=== PATIENT | female | born 1935 | race Caucasian/White ===

== ENCOUNTER → 2017-09-12 | Outpatient (CLI) | payer MEDICARE ==
[~2017-09-12] MED LIST: ACET-1966 PO; ALEN70TA43 PO; CLIN300C99 PO; METH2.5T43 PO
--- NOTE | 2017-09-12 10:10 | RADIOLOGY IMAGING REPORT ---
FACILITY: [facility] - [place] PATIENT NAME: Pamela Hines : 1935 MR: [id number] V: [id number] EXAM DATE: ORDERING PHYSICIAN: CHARLENE ANDREA TECHNOLOGIST: Location: [facility] - [place] Patient: Pamela Hines : 1935 Visit/Account:[id number] Date of Sevice: 09/12/2017 Cervical spine minimum 4 views: HISTORY: Cervical neck pain, mainly on right side, radiates into head COMPARISON: None. FINDINGS: 8 views were obtained of the cervical spine. A mild to moderate disc space narrowing and osteophyte formation is present at all levels, most signi ficant at C4-5, C5-6 and C6-7. Multilevel facet degenerative changes are present most significant at those same levels. In neutral, there is no listhesis. In flexion and extension, there is no abnorm al motion. Vertebral body height is well maintained. On oblique films, no significant foraminal narrowing is noted on the right. Mild foraminal narrowing present at C4-5 on the left. On odontoid view, odontoid and relationship between C1 and C2 is not well evaluated due to overlap of the patient's teeth. On the submental vertex view, odontoid is grossly unremarkable. IMPRESSION: 1. Mild to moderate multilevel degenerative changes most significant at C4-5, C5-6 and C6-7. 2. Anatomic alignment. There is no abnormal motion. 3. Mild foraminal narrowing at C4-5 on the left. No significant foraminal narrowing seen on the rig ht. Report Dictated By: Ni Birmingham MD at 09/12/2017 10:02 AM Report E-Signed By: Ni Birmingham MD at 09/12/2017 10:06 AM WSN:ALDO
== END ==
LOC: RAD 09:10
PROVIDERS: ATTEND Family Medicine
DX: M50.323 Other cervical disc degeneration at C6-C7 level (principal)
CPT/HCPCS: 72050

== ENCOUNTER 2017-12-10 09:45 | Outpatient (RCR) | payer MEDICARE ==
--- NOTE | 2017-09-13 17:39 | PT INITIAL EVALUATION ---
MEDICAL DIAGNOSIS: Neck pain TREATMENT DIAGNOSIS: Same DATE OF ONSET: 09/13/16 SUBJECTIVE: Pamela Hines presents to physical therapy with complaints of neck pain surrounding her R ear and radiating to her anterior R side of her face and down into her R shoulder (UT region). She reports that the pain started approximately one year ago for no apparent reason. She rates her current neck pain to be 4/5/10. She reports that the neck pain feels better with Tylenol X 2 -3 times per day, with bending her neck back while sitting and driving, and as the day progresses. She reports her neck pain to be worse with bending her neck into flexion, reading, turning, and in the am. She reports that she does not have headaches associated with her neck pain. She reports that she had an xray yesterday. She denies any of the following symptoms: dizziness, tinnitus, nausea, swallowing difficulties. She reports night pain and denies any unexplained weight loss. Furthermore, she denies any recent accidents or surgery. Pain location is Cervical 2-7 radiating to R anterior side of face and to R UT and described as achy, shooting. Pain scale is 4 on a ten point pain scale. REHAB PROBLEM LIST: Increased Pain Decreased ROM Decreased Strength Decreased Endurance Decreased Function Decreased ADL's PREVIOUS MEDICAL HISTORY: See EMR OCCUPATION: Retired OBJECTIVE: Posture: She demonstrated moderate forward head, increased thoracic kyphosis, B rounded shoulders, and decreased lumbar lordosis. ROM: Cervical AROM: protrusion: minimal restriction with pain, flexion: minimal restriction with pain, retraction: moderate restriction with pain, extension : minimal restriction with pain, lateral flexion R: major restriction with pain , lateral flexion L: major restriction with pain, R rotation: moderate restriction with pain, L rotation: major restriction with pain. She reports that L rotation feels the most restricted and painful. Palpation: TTP: spinous process of C2-7 and radiating pain around R ear, R anterior side of face, and R UT. Sensation: Denies any N&T, therefore, it was not tested Special Tests: Repeated retraction: pain felt during the test and better following the test. Repeated retraction with extension: pain felt during the test and better following the test with centralized symptoms with increased L rotation. Mobility: Independent ASSESSMENT: Pamela will benefit from skilled physical therapy to address the listed impairments to improve function and QOL. Based on today's examination, her symptoms are consistent with a provisional classification of posterior derangement that responds well to extension based exercises. Short Term Goals 2 weeks: Pt will demonstrate centralized neck pain to improve function and QOL. 4 weeks: Pt will demonstrate abolished neck pain and demonstrate full cervical AROM with normal end feels to improve function and QOL. Patient's Goals reduce neck pain PLAN: Patient to be seen for Manual Therapy/STM/MET Strengthening/condition Range of Motion Spinal Stabilization Work Hardening/Cond Stretching Neuromuscular Re-ed Closed Chain Program Posture/Body mechanics Home Exercise Program Therapeutic Activities 2x/Week for 4 Weeks If you have any questions, comments, or concerns about this report or plan, please contact me at . Thank you, Cory Guevara, PT, DPT MTDD
--- NOTE | 2017-10-22 13:35 | PT PLAN OF CARE ---
Physician: Senait Valdes DO Patient is being seen: 2x/week Therapist: Cory Guevara, PT, DPT Medical Diagnosis: Neck pain Treatment Diagnosis: Same Date of Onset: 09/13/16 Date of Initial Evaluation: 09/13/17 Date patient was last seen: 10/22/17 Number of treatments: 10 Number of cancellations/No shows: 1 INTERVENTIONS: Manual Therapy/STM/MET Strengthening/condition Range of Motion Spinal Stabilization Work Hardening/Cond Stretching Neuromuscular Re-ed Closed Chain Program Posture/Body mechanics Home Exercise Program Therapeutic Activities GOALS: 2 weeks: Pt will demonstrate centralized neck pain to improve function and QOL. MET 4 weeks: Pt will demonstrate abolished neck pain and demonstrate full cervical AROM with normal end feels to improve function and QOL. Progressing well PATIENT'S GOAL: reduce neck pain Status of Patient's Goals: Progressing well Patient Compliance: Good Prognosis: Excellent Reasons for continuing therapy: This is a progress note for Pamela Hines. She reports that she continues to have neck pain especially in the evenings. She does report that the pain has moved from her ear to more in the center of her neck. She denies any headaches. She reports that she feels like her motion especially with driving has significantly improved. She denies any pain right now. She demonstrated improved cervical AROM in all directions with more normalized end feels, centralized neck pain as it no longer radiates to her R ear, and significant improvement in balance strategies especially when the vestibular system is isolated. She continues to be independent on her specific exercise and home exercise program. We will continue to abolish cervical pain, increase cervical AROM, and improve balance strategies to return to prior level of function. Posture: She demonstrated moderate forward head, increased thoracic kyphosis, B rounded shoulders, and decreased lumbar lordosis. ROM: Cervical AROM: protrusion: NIL with no pain, flexion: NIL with no pain, retraction: NIL with no pain, extension: NIL with no pain, lateral flexion R: moderate restriction with stretch, lateral flexion L: moderate restriction with stretch, R rotation: NIL with no pain, L rotation: minimal restriction with stiffness. She reports that L rotation feels the most restricted and painful. Palpation: TTP: spinous process of CC2-3 Special Tests: Repeated retraction: pain felt during the test and better following the test. Repeated retraction with extension: pain felt during the test and better following the test with centralized symptoms with increased L rotation. Mobility: Independent If you have any questions, please contact me at [phone]. Thank you, Cory Guevara, PT, DPT MAHAD
--- NOTE | 2017-11-27 13:54 | PT PLAN OF CARE ---
Physician: Senait Valdes DO Patient is being seen: 2x/week Therapist: Cory Guevara, PT, DPT Medical Diagnosis: Neck pain Treatment Diagnosis: Same Date of Onset: 09/13/16 Date of Initial Evaluation: 09/13/17 Date patient was last seen: 11/26/17 Number of treatments: 20 Number of cancellations/No shows: 0 INTERVENTIONS: Manual Therapy/STM/MET Strengthening/condition Range of Motion Spinal Stabilization Work Hardening/Cond Stretching Neuromuscular Re-ed Closed Chain Program Posture/Body mechanics Home Exercise Program Therapeutic Activities GOALS: 2 weeks: Pt will demonstrate centralized neck pain to improve function and QOL. MET 4 weeks: Pt will demonstrate abolished neck pain and demonstrate full cervical AROM with normal end feels to improve function and QOL. Progressing well PATIENT'S GOAL: reduce neck pain Status of Patient's Goals: Progressing well Patient Compliance: Good Prognosis: Excellent Reasons for continuing therapy: This is a progress note for Pamela Hines. She reports that she feels like she is able to manage her neck pain better. She reports that if the neck pain comes on she can now eliminate her pain within a few motions of her specific exercise, which she reports that she could not do prior to PT. Furthermore, she reports that she feels like her balance has gotten much better. She denies any falls. She reports that she feels like her B LE's strength has gotten much better. Lastly, she reports that she feels like her walking has improved as well. She continues to have more stiffness in the evening when she is sitting or resting after a day. She reports that she does not have any soreness or stiffness while moving around throughout her day. She reports that she would like to continue to improve pain, balance, and strength. She demonstrated the following improvements: gait mechanics, B LE strength, balance in all conditions, improved cervical AROM, and endurance. However, she continues to have neck pain that comes and goes and usually comes when she is sitting or resting after a day of work that has not shown the ability to fully resolve symptoms via PT, however, we have given her tools that she can manage her neck pain when it comes on during the night time. Furthermore, we would like to verify that she is independent on her home exercise program and then discharge in the next week to two weeks. Posture: She demonstrated moderate forward head, increased thoracic kyphosis, B rounded shoulders, and decreased lumbar lordosis. ROM: Cervical AROM: protrusion: NIL with no pain, flexion: NIL with no pain, retraction: NIL with no pain, extension: NIL with no pain, lateral flexion R: moderate restriction with stretch, lateral flexion L: moderate restriction with stretch, R rotation: NIL with no pain, L rotation: minimal restriction with stiffness. She reports that L rotation feels the most restricted and painful. Palpation: TTP: spinous process of CC2-3 Special Tests: Repeated retraction: pain felt during the test and better following the test. Repeated retraction with extension: pain felt during the test and better following the test with centralized symptoms with increased L rotation. Mobility: Independent If you have any questions, please contact me at [phone]. Thank you, Cory Guevara, PT, DPT MAHAD
== END 2017-12-12 ==
LOC: PT 09:45
PROVIDERS: ATTEND Family Medicine
DX: M54.2 Cervicalgia (principal)
CPT/HCPCS: 97161

== ENCOUNTER 2018-01-07 10:30 | Outpatient (RCR) | payer MEDICARE ==
--- NOTE | 2017-12-13 17:40 | PT PLAN OF CARE ---
Physician: Senait Valdes DO Patient is being seen: [yancy [email or web address]] Therapist: [[email or web address]] Medical Diagnosis: Neck pain Treatment Diagnosis: Same Date of Onset: 09/13/16 Date of Initial Evaluation: 09/13/17 Date patient was last seen: 12/13/17 Number of treatments: 25 Number of cancellations/No shows: [*] INTERVENTIONS: Manual Therapy/STM/MET Strengthening/condition Range of Motion Spinal Stabilization Work Hardening/Cond Stretching Neuromuscular Re-ed Closed Chain Program Posture/Body mechanics Home Exercise Program Therapeutic Activities GOALS: 2 weeks: Pt will demonstrate centralized neck pain to improve function and QOL. MET 4 weeks: Pt will demonstrate abolished neck pain and demonstrate full cervical AROM with normal end feels to improve function and QOL. Progressing well PATIENT'S GOAL: reduce neck pain Status of Patient's Goals: Progressing well Patient Compliance: Good Prognosis: Excellent Reasons for continuing therapy: This is a progress note for Pamela Hines. She reports that she is doing well. She reports that she feels like her balance, strength, and neck pain have improved. She reports that she continues to perform her home exercise program with any problems. She reports that she would like to continue to improve her B LE strength, improve endurance, and improve walking mechanics so that she can do everything around her yard easier with less risk of falls. She continues to demonstrate improvements with balance strategies in all conditions, improvements with cervical AROM along with decreased cervical pain, independent on home exercise program, improvements with gait mechanics, improvements in endurance, improvements in musculature strength surrounding hip and knee, however, she continues to be weak (4/5) with B ankles that we would like to continue to improve so that she can utilize her ankle strategies for balance verus relying solely on her hip strategies. Posture: She demonstrated moderate forward head, increased thoracic kyphosis, B rounded shoulders, and decreased lumbar lordosis. ROM: Cervical AROM: protrusion: NIL with no pain, flexion: NIL with no pain, retraction: NIL with no pain, extension: NIL with no pain, lateral flexion R: moderate restriction with stretch, lateral flexion L: moderate restriction with stretch, R rotation: NIL with no pain, L rotation: minimal restriction with stiffness. She reports that L rotation feels the most restricted and painful. Palpation: TTP: spinous process of CC2-3 Special Tests: Repeated retraction: pain felt during the test and better following the test. Repeated retraction with extension: pain felt during the test and better following the test with centralized symptoms with increased L rotation. Mobility: Independent If you have any questions, please contact me at [phone]. Thank you, Cory Guevara, PT, DPT MAHAD
--- NOTE | 2018-01-07 11:34 | PT PLAN OF CARE ---
Physician: Senait Valdes DO Patient is being seen: 2x/week Therapist: Cory Guevara, PT, DPT Medical Diagnosis: Neck pain Treatment Diagnosis: Same Date of Onset: 09/13/16 Date of Initial Evaluation: 09/13/17 Date patient was last seen: 01/07/18 Number of treatments: 31 Number of cancellations/No shows: 0 INTERVENTIONS: Manual Therapy/STM/MET Strengthening/condition Range of Motion Spinal Stabilization Work Hardening/Cond Stretching Neuromuscular Re-ed Closed Chain Program Posture/Body mechanics Home Exercise Program Therapeutic Activities GOALS: 2 weeks: Pt will demonstrate centralized neck pain to improve function and QOL. MET 4 weeks: Pt will demonstrate abolished neck pain and demonstrate full cervical AROM with normal end feels to improve function and QOL. Progressing well PATIENT'S GOAL: reduce neck pain Status of Patient's Goals: Progressing well Patient Compliance: Good Prognosis: Excellent Reasons for continuing therapy: This is a discharge note for Pamela Hines. She reports that she is doing well. She reports that she is staying consistent with her exercise program. She reports that she no longer has questions with her home exercise program. She reports that she feels like she made a lot of improvements with neck range of motion, balance, gait mechanics, endurance, and strength. She has progressed well within PT with significant improvements in core and BLE strength, cervical AROM along with decreased cervical pain, endurance, improved gait mechanics, improved balance strategies in all conditions, and is progressing closer to return of function. She is independent on her home exercise program. As a result, she will be discharged from formal PT to [facility]. Posture: She demonstrated moderate forward head, increased thoracic kyphosis, B rounded shoulders, and decreased lumbar lordosis. ROM: Cervical AROM: protrusion: NIL with no pain, flexion: NIL with no pain, retraction: NIL with no pain, extension: NIL with no pain, lateral flexion R: moderate restriction with stretch, lateral flexion L: moderate restriction with stretch, R rotation: NIL with no pain, L rotation: minimal restriction with stiffness. She reports that L rotation feels the most restricted and painful. Palpation: TTP: spinous process of CC2-3 Special Tests: Repeated retraction: pain felt during the test and better following the test. Repeated retraction with extension: pain felt during the test and better following the test with centralized symptoms with increased L rotation. Mobility: Independent If you have any questions, please contact me at [phone]. Thank you, Cory Guevara, PT, DPT MTDD
== END 2018-03-13 ==
LOC: PT 10:30
PROVIDERS: ATTEND Family Medicine
DX: M54.2 Cervicalgia (principal)

== ENCOUNTER 2018-01-31 03:33 | Day surgery (SDC) | payer MEDICARE ==
[~2018-01-31] VITALS: Ht 154.9 cm; Wt 51.7 kg
[2018-01-31 14:53] VITALS: BP 135/72
[2018-01-31] MEDS ORDERED: acetaZOLAMIDE 500 MG CAPCR PO ONE (15:00)
[2018-01-31] MEDS ORDERED: LIDOCAINE/SOD BICARB 8.4% SYR ID ONE (15:00)
[2018-01-31] MEDS ORDERED: OPHTHALMIC PROCEDURE 2 OS PRN ×2 (15:00)
[2018-01-31] MEDS ORDERED: NORMOSOL R SOLN(*) 1000 ML BAG 1,000 ML IV PRN (15:00)
[2018-01-31] MEDS ORDERED: OPHTHALMIC PROCEDURE 1 OS PRN (15:00)
[2018-01-31 16:24] VITALS: BP 127/91
--- NOTE | 2018-01-31 17:38 | FOSTER LEFT EYE CATARACT ---
EVENT DATE: January 31, 2018 SURGEON: Baldemar Painting MD ANESTHESIOLOGIST: None ANESTHESIA: Topical PREOPERATIVE DIAGNOSIS Cataract, left eye. POSTOPERATIVE DIAGNOSIS Cataract, left eye. PROCEDURE Phacoemulsification of cataractous lens with implantation of an intraocular lens , left eye. DESCRIPTION OF PROCEDURE The risks and benefits and alternatives were carefully discussed with the patient, and preoperative consent was obtained. The patient was brought to the operating room. After receiving topical anesthetic, the patient was prepped and draped using sterile technique in the usual manner. A stab incision was made, and the chamber was inflated with preservative-free lidocaine. DuoVisc was injected to inflate the chamber. A 2.2 mm blade was used to enter the anterior chamber. Utrata forceps were used to tear a circular capsulorrhexis. BSS was used to hydrodissect the nucleus. Phaco tip was introduced, and the nucleus was chopped into four quadrants. Each quadrant was removed. The I/A tip was used to remove the cortex. The bag was inflated with ProVisc. The intraocular lens was injected into the capsular bag. The I/A tip was used to remove the ProVisc. The wound was found to be watertight. Vigamox, Nevanac, and Maxitrol ointment were placed in the patient's eye. The patient's eye was patched, and the patient was taken to the recovery room in stable condition. The patient was examined in the recovery room and found to be stable prior to release from the hospital. MAHAD
== END 2018-01-31 16:50 | disposition home or self-care (01) ==
LOC: OR 03:33
PROVIDERS: ATTEND Ophthalmology
DX: H25.12 Age-related nuclear cataract, left eye (principal)
CPT/HCPCS: 66984; A9270; V2632

== ENCOUNTER 2018-04-11 02:40 | Day surgery (SDC) | payer MEDICARE ==
[~2018-04-11] VITALS: Ht 154.9 cm; Wt 52.6 kg
[~2018-04-11 02:40] MED LIST changes: +CALC-597 PO; +CHOL200074 PO; +CYAN250013 PO; +FISH1CAP15 PO; +FOLI0.8T29 PO; +MAGN250T34 PO; +PYRI200T PO; +SELE200T32 PO; +VITA-200 PO; +ZINC50TA43 PO; +[UNRECOGNIZED DRUG - CODE] PO
[2018-04-11] MEDS ORDERED: OPHTHALMIC PROCEDURE 2 OD PRN ×2 (12:30)
[2018-04-11] MEDS ORDERED: OPHTHALMIC PROCEDURE 1 OD PRN (12:30)
[2018-04-11 12:42] VITALS: BP 129/79
[2018-04-11] MEDS ORDERED: LIDOCAINE/SOD BICARB 8.4% SYR ID ONE (13:00)
[2018-04-11] MEDS ORDERED: NORMOSOL R SOLN(*) 1000 ML BAG 1,000 ML IV PRN (13:00)
[2018-04-11] MEDS ORDERED: acetaZOLAMIDE 500 MG CAPCR PO ONE (14:00)
[2018-04-11 14:15] VITALS: BP 148/95
--- NOTE | 2018-04-11 17:59 | FOSTER RIGHT EYE CATARACT ---
EVENT DATE: April 11, 2018 SURGEON: Baldemar Painting MD ANESTHESIA: Topical PREOPERATIVE DIAGNOSIS Cataract, right eye. POSTOPERATIVE DIAGNOSIS Cataract, right eye. PROCEDURE Phacoemulsification of cataractous lens with implantation of an intraocular lens, right eye. DESCRIPTION OF PROCEDURE The risks, benefits, and alternatives were carefully discussed with the patient, and preoperative consent was obtained. The patient was brought to the operating room after receiving topical anesthetic. The patient was prepped and draped using sterile technique in the usual manner. A stab incision was made, and the chamber was inflated with preservative-free lidocaine. DuoVisc was injected to inflate the chamber. A 2.2 mm blade was used to enter the anterior chamber. Utrata forceps were used to tear a circular capsulorrhexis. BSS was used to hydrodissect the nucleus. Phaco tip was introduced, and the nucleus was chopped into four quadrants. Each quadrant was removed. The I/A tip was used to remove the cortex. The bag was inflated with ProVisc. The intraocular lens was injected into the capsular bag. The I/A tip was used to remove the ProVisc. The wound was found to be watertight. Vigamox, Nevanac, and Maxitrol ointment were placed in the patient's eye. The patient's eye was patched, and the patient was taken to the recovery room in stable condition. The patient was examined in the recovery room and found to be stable prior to release from the hospital. MAHAD
== END 2018-04-11 14:40 | disposition home or self-care (01) ==
LOC: OR 02:40
PROVIDERS: ATTEND Ophthalmology
DX: H25.11 Age-related nuclear cataract, right eye (principal)
CPT/HCPCS: 66984; A9270; V2632

== ENCOUNTER → 2018-11-14 | Outpatient (CLI) | payer MEDICARE ==
--- NOTE | 2018-11-14 15:15 | RADIOLOGY IMAGING REPORT ---
FACILITY: [facility] PATIENT NAME: Pamela Hines : 1935 MR: [id number] V: [id number] EXAM DATE: ORDERING PHYSICIAN: CHARLENE ANDREA TECHNOLOGIST: Location: [facility] - [place] Patient: Pamela Hines : 1935 Visit/Account:[id number] Date of Sevice: 11/14/2018 LIVER HISTORY: Right upper quadrant pain post fall COMPARISON: None. FINDINGS: Gallbladder: Unremarkable; no stones or sludge. Liver: Negative. Common duct: Normal, 6.9 mm diameter. Pancreas: Partially obscured by bowel, visualized aspects unremarkable. Right kidney: Right kidney appears unremarkable with no evidence of hydronephrosis and measures 8.6 c m in length Upper abdominal aorta and IVC: Patent. Ascites: None visualized. IMPRESSION: Unremarkable right upper quadrant ultrasound Report Dictated By: Vilma Hammond MD at 11/14/2018 3:09 PM Report E-Signed By: Vilma Hammond MD at 11/14/2018 3:10 PM WSN:ALDO
== END ==
LOC: US 00:42
PROVIDERS: ATTEND Family Medicine
DX: R10.9 Unspecified abdominal pain (principal)
CPT/HCPCS: 76705